=== PATIENT | female | born 2005 | race Caucasian/White ===

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

== ENCOUNTER 2024-09-16 09:18 | Emergency (ER) | payer BC, MEDICAID ==
[2024-09-16 09:39] LABS: BASOPHILS ABSOLUTE AUTO 0.01 10^3/uL (0.00-0.50); BASOPHILS PERCENT AUTO 0.1 % (0-1); EOSINOPHILS ABSOLUTE AUTO 0.01 10^3/uL (0.00-1.50); EOSINOPHILS PERCENT AUTO 0.1 % (0-6); HEMATOCRIT 35.7 % (37.0-47.0); HEMOGLOBIN 11.7 g/dL (12.0-16.0); IMMATURE GRAN ABSOLUTE AUTO 0.03 10^3/uL (0.00-0.49); IMMATURE GRAN PERCENT AUTO 0.4 % (0.0-4.9); LYMPHOCYTES PERCENT AUTO 14.1 % (24-44); MEAN CORPUSCULAR HEMOGLOBIN 28.9 pg (27.0-32.0); MEAN CORPUSCULAR HGB CONC 32.8 g/dL (32.0-36.0); MEAN CORPUSCULAR VOLUME 88.1 fL (83.0-97.0); MONOCYTES ABSOLUTE AUTO 0.49 10^3/uL (0.00-1.50); MONOCYTES PERCENT AUTO 6.3 % (0-10); NEUTROPHILS ABSOLUTE AUTO 6.17 x10^3/uL (1.80-8.00); PLATELET COUNT,PLT 282 10^3/uL (150-400); RED BLOOD CELL COUNT 4.05 x10^6/uL (4.00-5.50); WHITE BLOOD CELL COUNT,WBC 7.8 10^3/uL (4.0-11.0)
[2024-09-16 09:45] LABS: APPEARANCE,URINE SLIGHTLY CLOUDY (CLEAR); BILIRUBIN,URINE NEGATIVE (NEGATIVE); COLOR,URINE YELLOW (YELLOW); GLUCOSE,URINE 500 mg/dL (NEGATIVE); KETONES,URINE >=160 mg/dL (NEGATIVE); LEUKOCYTE ESTERASE,URINE NEGATIVE (NEGATIVE); NITRITE,URINE NEGATIVE (NEGATIVE); OCCULT BLOOD,URINE NEGATIVE (NEGATIVE); PH,URINE 5.5 (4.5-8.0); PROTEIN,URINE NEGATIVE (NEGATIVE); UROBILINOGEN,URINE 0.2 EU/dL (0.2-1.0)
[2024-09-16 09:48] VITALS: BP 105/58; PULSE 96
[2024-09-16 09:54] LABS: ALANINE AMINOTRANSFERASE,ALT 20 U/L (12-78); ALBUMIN 3.7 g/dL (3.4-5.0); ALKALINE PHOSPHATASE 66 U/L (46-116); ASPARTATE AMNIOTRANSFERASE,AST 10 U/L (15-37); BILIRUBIN TOTAL 0.4 mg/dL (0.0-1.0); BLOOD UREA NITROGEN,BUN 10 mg/dL (7-18); CALCIUM 8.6 mg/dL (8.4-10.1); CARBON DIOXIDE,CO2 16 mmol/L (21-32); CHLORIDE,CL 100 mEq/L (98-106); CREATININE 1.4 mg/dL (0.6-1.0); EST CRCL DRUG DOSING (CG) 59.67 mL/min; POTASSIUM,K 3.8 mEq/L (3.5-5.0); PROTEIN TOTAL,TP 6.5 g/dL (6.4-8.2); SODIUM,NA 137 mEq/L (136-145)
[2024-09-16 09:56] LABS: C-REACTIVE PROTEIN < 0.50 mg/dL (<=0.50); ESTIMATED GFR 55 mL/min (>=60); GLUCOSE RANDOM 332 mg/dL (75-99)
[2024-09-16] MEDS: Sodium Chloride 0.9% 1,000 ML IV ONE (10:08)
[2024-09-16] MEDS: Prochlorperazine 10 MG/2 ML SDV IVPUSH ONE (10:09)
[2024-09-16] MEDS: Prochlorperazine 10 MG Tab PO ONE (11:23)
== END 2024-09-16 11:35 | disposition home or self-care (01) ==
LOC: CC.ED 09:18
DX: E10.65 Type 1 diabetes mellitus with hyperglycemia (principal); R10.11 Right upper quadrant pain; R11.2 Nausea with vomiting, unspecified; Z90.6 Acquired absence of other parts of urinary tract; Z79.4 Long term (current) use of insulin; Z79.899 Other long term (current) drug therapy
CPT/HCPCS: 36415; 80053; 81003; 82947; 85025; 86140; 96361; 96374; 99284-25; J0780; J7030; Q0164

== ENCOUNTER 2024-09-17 14:17 | Inpatient (IN) | payer BC ==
[2024-09-17] MEDS ORDERED: Sodium Chloride 0.9% 10 ML Syringe FLUSH PRN (14:22)
[2024-09-17] MEDS: Sodium Chloride 0.9% 1,000 ML IV ONE (14:36)
[2024-09-17 14:39] LABS: BASOPHILS ABSOLUTE AUTO 0.02 10^3/uL (0.00-0.50); BASOPHILS PERCENT AUTO 0.4 % (0-1); EOSINOPHILS ABSOLUTE AUTO 0.01 10^3/uL (0.00-1.50); EOSINOPHILS PERCENT AUTO 0.2 % (0-6); HEMATOCRIT 36.7 % (37.0-47.0); HEMOGLOBIN 12.2 g/dL (12.0-16.0); IMMATURE GRAN ABSOLUTE AUTO 0.01 10^3/uL (0.00-0.49); IMMATURE GRAN PERCENT AUTO 0.2 % (0.0-4.9); LYMPHOCYTES ABSOLUTE AUTO 1.42 10^3/uL (0.60-5.00); LYMPHOCYTES PERCENT AUTO 25.2 % (24-44); MEAN CORPUSCULAR HEMOGLOBIN 29.1 pg (27.0-32.0); MEAN CORPUSCULAR HGB CONC 33.2 g/dL (32.0-36.0); MEAN CORPUSCULAR VOLUME 87.6 fL (83.0-97.0); MONOCYTES ABSOLUTE AUTO 0.36 10^3/uL (0.00-1.50); MONOCYTES PERCENT AUTO 6.4 % (0-10); NEUTROPHILS ABSOLUTE AUTO 3.82 x10^3/uL (1.80-8.00); NEUTROPHILS PERCENT AUTO 67.6 % (41-71); PLATELET COUNT,PLT 340 10^3/uL (150-400); RED BLOOD CELL COUNT 4.19 x10^6/uL (4.00-5.50); WHITE BLOOD CELL COUNT,WBC 5.6 10^3/uL (4.0-11.0)
[2024-09-17 14:53] LABS: BILIRUBIN TOTAL 0.5 mg/dL (0.0-1.0); C-REACTIVE PROTEIN 0.5 mg/dL (<=0.50); CALCIUM 8.9 mg/dL (8.4-10.1); CREATININE 1.3 mg/dL (0.6-1.0); POTASSIUM,K 4.4 mEq/L (3.5-5.0)
[2024-09-17 15:00] LABS: LACTIC ACID 1.1 mmol/L (0.4-2.0)
[2024-09-17 15:14] LABS: EST CRCL DRUG DOSING (CG) 64.62 mL/min
[2024-09-17 15:21] LABS: APPEARANCE,URINE CLEAR (CLEAR); BILIRUBIN,URINE NEGATIVE (NEGATIVE); COLOR,URINE LIGHT YELLOW (YELLOW); GLUCOSE,URINE 500 mg/dL (NEGATIVE); KETONES,URINE >=160 mg/dL (NEGATIVE); LEUKOCYTE ESTERASE,URINE NEGATIVE (NEGATIVE); NITRITE,URINE NEGATIVE (NEGATIVE); OCCULT BLOOD,URINE NEGATIVE (NEGATIVE); PH,URINE 5.5 (4.5-8.0); PROTEIN,URINE NEGATIVE (NEGATIVE); UROBILINOGEN,URINE 0.2 EU/dL (0.2-1.0)
[2024-09-17] MEDS: Insulin Regular in 0.9 % NACL 100 ML IV SCH (15:51)
[2024-09-17] MEDS ORDERED: Naloxone 2 MG/2 ML Syringe IVPUSH PRN (16:10)
[2024-09-17] MEDS ORDERED: Acetaminophen 325 MG Tab PO PRN (16:10)
[2024-09-17] MEDS: Sodium Chloride 0.45% with KCl 1,000 ML IV ONE (16:11)
[2024-09-17] MEDS: HYDROmorphone 0.5 MG/0.5 ML Syringe IVPUSH PRN (16:56)
[2024-09-17] MEDS: Prochlorperazine 10 MG/2 ML SDV IVPUSH PRN (17:46)
[2024-09-17] MEDS: Ondansetron 4 MG/2 ML SDV IV PRN (18:57)
[2024-09-17] MEDS: fentaNYL 50 MCG/ML SDV IVPUSH ONE (19:12)
[2024-09-17 20:06] LABS: O2 DELIVERY DEVICE ROOM AIR; PCO2 VENOUS 28.7; PH,VENOUS 7.28 (7.36-7.41); PO2 VENOUS 73.2
[2024-09-17 20:07] LABS: CALCIUM 8.2 mg/dL (8.4-10.1); CREATININE 1.1 mg/dL (0.6-1.0); EST CRCL DRUG DOSING (CG) 76.37 mL/min; POTASSIUM,K 3.6 mEq/L (3.5-5.0)
[2024-09-17 20:07] LABS: BICARBONATE,VENOUS 13.4; O2 SATURATION VENOUS 92.8
[2024-09-17] MEDS: D5 1/2 NS w/ 10 mEq/L KCl 1,000 ML IV SCH (20:35)
[2024-09-18 07:23] LABS: O2 DELIVERY DEVICE ROOM AIR
[2024-09-18 07:30] LABS: BASOPHILS ABSOLUTE AUTO 0.01 10^3/uL (0.00-0.50); BASOPHILS PERCENT AUTO 0.2 % (0-1); EOSINOPHILS ABSOLUTE AUTO 0.07 10^3/uL (0.00-1.50); EOSINOPHILS PERCENT AUTO 1.5 % (0-6); HEMATOCRIT 32.7 % (37.0-47.0); HEMOGLOBIN 10.9 g/dL (12.0-16.0); IMMATURE GRAN ABSOLUTE AUTO 0.01 10^3/uL (0.00-0.49); IMMATURE GRAN PERCENT AUTO 0.2 % (0.0-4.9); LYMPHOCYTES ABSOLUTE AUTO 1.65 10^3/uL (0.60-5.00); LYMPHOCYTES PERCENT AUTO 36.5 % (24-44); MEAN CORPUSCULAR HEMOGLOBIN 29.1 pg (27.0-32.0); MEAN CORPUSCULAR HGB CONC 33.3 g/dL (32.0-36.0); MEAN CORPUSCULAR VOLUME 87.2 fL (83.0-97.0); MONOCYTES ABSOLUTE AUTO 0.38 10^3/uL (0.00-1.50); MONOCYTES PERCENT AUTO 8.4 % (0-10); NEUTROPHILS PERCENT AUTO 53.2 % (41-71); PLATELET COUNT,PLT 253 10^3/uL (150-400); RED BLOOD CELL COUNT 3.75 x10^6/uL (4.00-5.50); WHITE BLOOD CELL COUNT,WBC 4.5 10^3/uL (4.0-11.0)
[2024-09-18 07:43] LABS: ALANINE AMINOTRANSFERASE,ALT 20 U/L (12-78); ALBUMIN 3.2 g/dL (3.4-5.0); ALKALINE PHOSPHATASE 58 U/L (46-116); ASPARTATE AMNIOTRANSFERASE,AST 14 U/L (15-37); BILIRUBIN TOTAL 0.5 mg/dL (0.0-1.0); BLOOD UREA NITROGEN,BUN 4 mg/dL (7-18); CALCIUM 8.1 mg/dL (8.4-10.1); CARBON DIOXIDE,CO2 22 mmol/L (21-32); CHLORIDE,CL 105 mEq/L (98-106); CREATININE 0.9 mg/dL (0.6-1.0); EST CRCL DRUG DOSING (CG) 93.34 mL/min; GLUCOSE RANDOM 146 mg/dL (75-99); POTASSIUM,K 3.5 mEq/L (3.5-5.0); PROTEIN TOTAL,TP 5.9 g/dL (6.4-8.2); SODIUM,NA 139 mEq/L (136-145)
[2024-09-18 07:49] LABS: C-REACTIVE PROTEIN < 0.50 mg/dL (<=0.50); ESTIMATED GFR 94 mL/min (>=60)
[2024-09-18 07:51] LABS: PH,VENOUS 7.29 (7.36-7.41)
[2024-09-18 07:52] LABS: BASE EXCESS VENOUS -7.5; BICARBONATE,VENOUS 18.5; O2 SATURATION VENOUS 78.4; PCO2 VENOUS 38.6; PO2 VENOUS 47.5
[2024-09-19 07:59] LABS: BASOPHILS ABSOLUTE AUTO 0.01 10^3/uL (0.00-0.50); BASOPHILS PERCENT AUTO 0.2 % (0-1); EOSINOPHILS ABSOLUTE AUTO 0.07 10^3/uL (0.00-1.50); EOSINOPHILS PERCENT AUTO 1.7 % (0-6); HEMATOCRIT 33.4 % (37.0-47.0); HEMOGLOBIN 11.3 g/dL (12.0-16.0); LYMPHOCYTES ABSOLUTE AUTO 1.47 10^3/uL (0.60-5.00); LYMPHOCYTES PERCENT AUTO 36.7 % (24-44); MEAN CORPUSCULAR HEMOGLOBIN 29.5 pg (27.0-32.0); MEAN CORPUSCULAR HGB CONC 33.8 g/dL (32.0-36.0); MEAN CORPUSCULAR VOLUME 87.2 fL (83.0-97.0); MONOCYTES ABSOLUTE AUTO 0.37 10^3/uL (0.00-1.50); MONOCYTES PERCENT AUTO 9.2 % (0-10); NEUTROPHILS ABSOLUTE AUTO 2.09 x10^3/uL (1.80-8.00); NEUTROPHILS PERCENT AUTO 52.2 % (41-71); PLATELET COUNT,PLT 249 10^3/uL (150-400); RED BLOOD CELL COUNT 3.83 x10^6/uL (4.00-5.50)
[2024-09-19 08:20] LABS: ALANINE AMINOTRANSFERASE,ALT 31 U/L (12-78); ALBUMIN 3.1 g/dL (3.4-5.0); ALKALINE PHOSPHATASE 52 U/L (46-116); ASPARTATE AMNIOTRANSFERASE,AST 42 U/L (15-37); BILIRUBIN TOTAL 0.3 mg/dL (0.0-1.0); BLOOD UREA NITROGEN,BUN 2 mg/dL (7-18); CALCIUM 8.4 mg/dL (8.4-10.1); CARBON DIOXIDE,CO2 26 mmol/L (21-32); CHLORIDE,CL 109 mEq/L (98-106); CREATININE 0.8 mg/dL (0.6-1.0); EST CRCL DRUG DOSING (CG) 105.01 mL/min; GLUCOSE RANDOM 100 mg/dL (75-99); PROTEIN TOTAL,TP 5.8 g/dL (6.4-8.2); SODIUM,NA 144 mEq/L (136-145)
[2024-09-19 08:40] LABS: C-REACTIVE PROTEIN < 0.50 mg/dL (<=0.50); ESTIMATED GFR 108 mL/min (>=60)
[2024-09-19 09:24] LABS: BICARBONATE,VENOUS 22.2; O2 DELIVERY DEVICE ROOM AIR; O2 SATURATION VENOUS 99.5; PCO2 VENOUS 38.6; PH,VENOUS 7.37 (7.36-7.41)
[2024-09-19 09:25] LABS: BASE EXCESS VENOUS -2.9
[2024-09-19] MEDS ORDERED: Glucagon,Human Recombinant 1 MG Vial IM PRN ×2 (10:36→10:42)
[2024-09-19] MEDS ORDERED: 50% Dextrose in Water 50 ML Syringe IVPUSH PRN ×2 (10:36→10:42)
[2024-09-19] MEDS: Potassium Chloride 20 MEQ Tab.ER PO ONE (11:00)
[2024-09-19] MEDS: Acetaminophen/HYDROcodone 325-5 MG Tab PO SCH (12:02)
[2024-09-19] MEDS: Insulin Lispro 100 Units/ML 3 ML Vial SUBCUT SCH ×2 (12:06→12:07)
[2024-09-19 13:55] VITALS: BP 119/85; PULSE 88
[2024-09-19] MEDS ORDERED: Potassium Chloride 20 MEQ Tab.ER PO ONE (17:30)
[2024-09-19] MEDS ORDERED: Insulin Glarg,Human.Rec.Analog 100 Unit/ML 10 ML Vial SUBCUT SCH (20:00)
== END 2024-09-19 14:30 | DRG 420 ==
LOC: UNDOADMIN 14:17 → CC.MS 14:17
PROVIDERS: ADMIT Nurse Practitioner Family; ATTEND Nurse Practitioner Family
DX: E10.10 Type 1 diabetes mellitus with ketoacidosis without coma (principal); R63.0 Anorexia; Z88.8 Allergy status to other drugs, medicaments and biological substances; Z79.4 Long term (current) use of insulin; Z79.1 Long term (current) use of non-steroidal anti-inflammatories (NSAID); Z79.899 Other long term (current) drug therapy; Z87.81 Personal history of (healed) traumatic fracture; Z90.89 Acquired absence of other organs; Z86.16 Personal history of COVID-19
CPT/HCPCS: 36415; 36600; 80048; 80053; 81003; 82800; 82803; 82947; 83605; 84703; 85025; 86140; 99223; 99233; 99239; A9270-GY; J0780; J1815-GY; J2405; J3010; J3480; J7030

== ENCOUNTER 2024-10-28 00:43 | Emergency (ER) | payer BC ==
[2024-10-28 01:03] VITALS: BP 92/56; PULSE 116
[2024-10-28] MEDS: Sodium Chloride 0.9% 1,000 ML IV ONE (01:15)
[2024-10-28] MEDS: Prochlorperazine 10 MG/2 ML SDV IVPUSH ONE (01:19)
[2024-10-28 01:25] LABS: BASOPHILS ABSOLUTE AUTO 0.02 10^3/uL (0.00-0.50); BASOPHILS PERCENT AUTO 0.3 % (0-1); EOSINOPHILS ABSOLUTE AUTO 0.05 10^3/uL (0.00-1.50); EOSINOPHILS PERCENT AUTO 0.7 % (0-6); HEMATOCRIT 37.9 % (37.0-47.0); HEMOGLOBIN 12.6 g/dL (12.0-16.0); IMMATURE GRAN ABSOLUTE AUTO 0.01 10^3/uL (0.00-0.49); IMMATURE GRAN PERCENT AUTO 0.1 % (0.0-4.9); LYMPHOCYTES PERCENT AUTO 2.7 % (24-44); MEAN CORPUSCULAR HEMOGLOBIN 29.4 pg (27.0-32.0); MEAN CORPUSCULAR HGB CONC 33.2 g/dL (32.0-36.0); MEAN CORPUSCULAR VOLUME 88.6 fL (83.0-97.0); NEUTROPHILS ABSOLUTE AUTO 6.96 x10^3/uL (1.80-8.00); NEUTROPHILS PERCENT AUTO 92.2 % (41-71); PLATELET COUNT,PLT 225 10^3/uL (150-400); RED BLOOD CELL COUNT 4.28 x10^6/uL (4.00-5.50); WHITE BLOOD CELL COUNT,WBC 7.5 10^3/uL (4.0-11.0)
[2024-10-28 01:27] LABS: APPEARANCE,URINE CLEAR (CLEAR); BILIRUBIN,URINE NEGATIVE (NEGATIVE); COLOR,URINE DARK YELLOW (YELLOW); GLUCOSE,URINE NEGATIVE (NEGATIVE); KETONES,URINE TRACE mg/dL (NEGATIVE); LEUKOCYTE ESTERASE,URINE NEGATIVE (NEGATIVE); NITRITE,URINE NEGATIVE (NEGATIVE); OCCULT BLOOD,URINE NEGATIVE (NEGATIVE); PH,URINE 5.5 (4.5-8.0); PROTEIN,URINE NEGATIVE (NEGATIVE); UROBILINOGEN,URINE 0.2 EU/dL (0.2-1.0)
[2024-10-28 01:31] LABS: BASE EXCESS ARTERIAL -3.8 (-2.0-3.0); BICARBONATE,ARTERIAL 20.4 mm/L (22.0-26.0); O2 DELIVERY DEVICE ROOM AIR; O2 SATURATION ARTERIAL 97 % (95-98); PCO2 ARTERIAL 34 mm/Hg0 (35-45); PH,ARTERIAL 7.39 (7.35-7.45); PO2 ARTERIAL 94 mm/Hg (80-100)
[2024-10-28] MEDS: Iopamidol 755 Mg/ML 100 ML Bottle IVPUSH ONE (01:36)
[2024-10-28 01:38] LABS: ALBUMIN 3.8 g/dL (3.4-5.0); C-REACTIVE PROTEIN 1.13 mg/dL (<=0.50); CALCIUM 8.1 mg/dL (8.4-10.1); CREATININE 0.9 mg/dL (0.6-1.0); EST CRCL DRUG DOSING (CG) 93.34 mL/min; POTASSIUM,K 3.8 mEq/L (3.5-5.0); PROTEIN TOTAL,TP 6.9 g/dL (6.4-8.2)
[2024-10-28] MEDS ORDERED: Naloxone 2 MG/2 ML Syringe IVPUSH PRN (01:50)
[2024-10-28] MEDS: fentaNYL 50 MCG/ML SDV IVPUSH ONE (01:57)
[2024-10-28] MEDS: Prochlorperazine 10 MG Tab PO ONE (02:32)
[2024-10-28] MEDS: Take Home: Acetaminophen/HYDROcodone 325-5 MG, 2 Tab Pack PO ONE (02:32)
== END 2024-10-28 02:40 | disposition home or self-care (01) ==
LOC: CC.ED 00:43
DX: R11.2 Nausea with vomiting, unspecified (principal); E10.9 Type 1 diabetes mellitus without complications; Z91.048 Other nonmedicinal substance allergy status; Z79.899 Other long term (current) drug therapy
CPT/HCPCS: 36415; 36600; 74177; 80053; 81003; 82803; 83690; 85025; 86140; 96361; 96374; 96375; 99284-25; A9270-GY; J0780; J3010; J7030; Q0164; Q9967

== ENCOUNTER 2025-01-27 19:59 | Emergency (ER) | payer BC ==
[2025-01-27 20:18] VITALS: BP 119/79
[2025-01-27 20:22] VITALS: PULSE 88
[2025-01-27] MEDS: Take Home: Amoxicillin/Clavulanate K 875-125 MG Tab, 2 Tab Pack PO ONE (20:24)
[2025-01-27] MEDS: Diphtheria/Tetanus Toxoids,Adult (Td) 0.5 ML Syringe IM ONE (20:28)
== END 2025-01-27 20:54 | disposition home or self-care (01) ==
LOC: CC.ED 19:59
DX: S61.052A Open bite of left thumb without damage to nail, initial encounter (principal); E10.9 Type 1 diabetes mellitus without complications; Z90.49 Acquired absence of other specified parts of digestive tract; Z91.048 Other nonmedicinal substance allergy status; Z79.899 Other long term (current) drug therapy; Z79.4 Long term (current) use of insulin; Z23 Encounter for immunization; W55.01XA Bitten by cat, initial encounter
CPT/HCPCS: 90471; 90714; 99283-25; A9270-GY

== ENCOUNTER 2025-02-08 08:11 | Emergency (ER) | payer BC ==
[2025-02-08 08:42] VITALS: BP 118/70; PULSE 82
[2025-02-08] MEDS: Ibuprofen 200 MG Tab PO ONE (08:59)
== END 2025-02-08 09:11 | disposition home or self-care (01) ==
LOC: CC.ED 08:11 → SUPCPDRO 08:11 → CC.ED 09:11
DX: S60.00XA Contusion of unspecified finger without damage to nail, initial encounter (principal); E10.9 Type 1 diabetes mellitus without complications; Z88.8 Allergy status to other drugs, medicaments and biological substances; Z79.899 Other long term (current) drug therapy; Z79.4 Long term (current) use of insulin; Z90.49 Acquired absence of other specified parts of digestive tract; W18.31XA Fall on same level due to stepping on an object, initial encounter
CPT/HCPCS: 73130-RT; 99283; A9270-GY